=== PATIENT | male | born 1975 | race Caucasian/White ===

== ENCOUNTER 2018-07-27 23:19 | Emergency (ER) | payer OTHER ==
[~2018-07-27] VITALS: Ht 170.2 cm; Wt 90.9 kg
[2018-07-28] MEDS ORDERED: FLUORESCEIN OPHTH 1 MG STRIP OU ONE (00:15)
[2018-07-28] MEDS ORDERED: TETRACAINE 0.5% OPHTH SOLN 4ML OU ONE (00:15)
[2018-07-28] MEDS ORDERED: POLYTRIM OPTH DROPS 10ML OS STA (01:00)
[2018-07-28 01:29] VITALS: BP 139/90
[2018-07-28] MEDS ORDERED: NORCO 5/325MG TABLET (BULK FOR ED) PO ONE (01:30)
== END 2018-07-28 01:32 | disposition home or self-care (01) ==
LOC: M ED 23:19
DX: T15.02XA Foreign body in cornea, left eye, initial encounter (principal); X58.XXXA Exposure to other specified factors, initial encounter; Y92.89 Other specified places as the place of occurrence of the external cause; Z88.1 Allergy status to other antibiotic agents